=== PATIENT | male | born 1990 | race Caucasian/White ===

== ENCOUNTER 2020-07-23 16:52 | Emergency (ER) | payer OTHER, BC ==
[2020-07-23] MEDS ORDERED: Diphtheria,Pertussis(Acell),Tetanus Vaccine 0.5 ML Syringe IM ONE (17:31)
--- NOTE | 2020-07-23 17:54 | CR ---
Indication: Puncture wound between 1st and 2nd digit Comparison: None available. Technique: AP, Lateral, and Oblique views left hand were obtained Findings: There is no displaced fracture or dislocation. The joint spaces are grossly preserved. There is no evidence of radiopaque foreign body or subcutaneous emphysema. Impression: No evidence of radiopaque foreign body or subcutaneous emphysema. No evidence of displaced fracture. Dictated by Wale Lopez MD @ Jul 23 2020 5:52PM Signed by Dr. Wale Lopez @ Jul 23 2020 5:53PM
--- NOTE | 2020-07-23 18:06 | EDM.PDOC ---
ED HPI GENERAL MEDICAL PROBLEM - General Chief Complaint: Laceration Stated Complaint: STABE TO HAND Time Seen by Provider: 07/23/20 16:57 Source of Information: Reports: Patient History Limitations: Reports: No Limitations - History of Present Illness INITIAL COMMENTS - FREE TEXT/NARRATIVE: HISTORY AND PHYSICAL: History of present illness: Patient is a 30-year-old male who presents to the ED today with concern of puncture wound to his left hand. Patient states he was trying to open a can with a screwdriver when the screwdriver slipped and went into his left hand. Patient states the screwdriver came out immediately and he applied pressure to the area and came to the emergency room. Patient states that he is not up-to-date on his tetanus vaccine and would like to update this today. Patient states he is fully able to move the hand without difficulty. Patient denies any other symptoms or concerns. Patient denies fever, chills, chest pain, shortness of breath, or cough. Denies headache, neck stiff ness, change in vision, syncope, or near syncope. Denies nausea, vomiting, abdominal pain, diarrhea, constipation, or dysuria. Has not noted any blood in urine or stool. Patient has been eating and drinking appropriately. Review of systems: As per history of present illness and below otherwise all systems reviewed and negative. Past medical history: As per history of present illness and as reviewed below otherwise noncontributory. Surgical history: As per history of present illness and as reviewed below otherwise noncontributory. Social history: See social history for further information Family history: As per history of present illness and as reviewed below otherwise noncontributory. Physical exam: General: Patient is alert, oriented, and in no acute distress. Patient sitting comfortably on exam table. Vitals stable and reviewed by me. HEENT: Atraumatic, normocephalic, pupils equal and reactive bilaterally, negative for conjunctival pallor or scleral icterus, mucous membranes moist, TMs normal bilaterally, throat clear, neck supple, nontender, trachea midline. No drooling or trismus noted. No meningeal signs. No hot potato voice noted. Lungs: Clear to auscultation, breath sounds equal bilaterally, chest nontender. Heart: S1S2, regular rate and rhythm without overt murmur Abdomen: Soft, nondistended, nontender. Negative for masses or hepatosplenomegaly. Negative for costovertebral tenderness. Pelvis: Stable nontender. Genitourinary: Deferred. Rectal: Deferred. Skin: Intact, warm, dry. No lesions or rashes noted. Extremities: There is a 3 mm puncture wound with hemostasis which does have underlying mild edema of the webspace between the first and second digit of the dorsum of the left hand. Patient has full range of motion of the hand without deficit. Radial pulses grossly intact of the left upper extremity with capillary refill less than 2 seconds. Otherwise, atraumatic, negative for cords or calf pain. Neurovascular unremarkable. Neuro: Awake, alert, oriented. Cranial nerves II through XII unremarkable. Cerebellum unremarkable. Motor and sensory unremarkable throughout. Exam nonfocal. Notes: Signs and symptoms that were prompt return to the ED thoroughly discussed with patient. Discussed importance for follow-up with a primary care provider. Voices understanding and is agreeable to plan of care. Denies any further questions or concerns at this time. Diagnostics: Hand x-ray Therapeutics: Dressing placed by nursing staff, tetanus Prescription: Keflex Impression: Puncture wound of hand, left Plan: 1. Take medication as prescribed. You can alternate ibuprofen and Tylenol as directed for pain and discomfort. 2. Follow-up with your primary care provider as discussed. Return to the ED as needed and as discussed. Definitive disposition and diagnosis as appropriate pending reevaluation and review of above. left hand Pain Score (Numeric/FACES): 4 - Related Data Allergies Allergy/AdvReac Type Severity Reaction Status Date / Time No Known Allergies Allergy Verified 07/23/20 17:21 Home Meds: Home Meds cephALEXin [Keflex] 500 mg PO Q8H 7 Days #24 cap 07/23/20 [Rx] Past Medical History - Infectious Disease History Infectious Disease History: Reports: None Social & Family History - Family History Family Medical History: No Pertinent Family History - Caffeine Use Caffeine Use: Reports: None - Recreational Drug Use Recreational Drug Use: No ED ROS GENERAL - Review of Systems Review Of Systems: Comprehensive ROS is negative, except as noted in HPI. ED EXAM, SKIN/RASH Exam: See Below (see dictation) Course - Vital Signs Last Recorded V/S: Last Vital Signs Temp 98 F 07/23/20 17:07 Pulse 83 07/23/20 17:07 Resp 16 07/23/20 17:07 BP 162/99 H 07/23/20 17:07 Pulse Ox 96 07/23/20 17:07 - Orders/Labs/Meds Orders: Active Orders 24 hr Category Date Time Status Vaccines to be Administered [RC] PER UNIT ROUTINE Care 07/23/20 17:31 Active Meds: Medications Discontinued Medications Generic Name Dose Route Start Last Admin Trade Name Jyoti PRN Reason Stop Dose Admin Diphtheria/Tetanus/Acell Pertussis 0.5 ml 07/23/20 17:31 Boostrix IM 07/23/20 17:32 .ONCE ONE Departure - Departure Time of Disposition: 18:06 Disposition: Home, Self-Care 01 Clinical Impression: Puncture wound of hand Qualifiers: Encounter type: initial encounter Foreign body presence: without foreign body Laterality: left Qualified Code(s): S61.432A - Puncture wound without foreign body of left hand, initial encounter - Discharge Information Prescriptions: cephALEXin [Keflex] 500 mg PO Q8H 7 Days #24 cap Referrals: PCP,None [Primary Care Provider] - Forms: ED Department Discharge Additional Instructions: The following information is given to patients seen in the emergency department who are being discharged to home. This information is to outline your options for follow-up care. We provide all patients seen in our emergency department with a follow-up referral. The need for follow-up, as well as the timing and circumstances, are variable depending upon the specifics of your emergency department visit. If you don't have a primary care physician on staff, we will provide you with a referral. We always advise you to contact your personal physician following an emergency department visit to inform them of the circumstance of the visit and for follow-up with them and/or the need for any referrals to a consulting specialist. The emergency department will also refer you to a specialist when appropriate. This referral assures that you have the opportunity for follow-up care with a specialist. All of these measure are taken in an effort to provide you with optimal care, which includes your follow-up. Under all circumstances we always encourage you to contact your private physician who remains a resource for coordinating your care. When calling for follow-up care, please make the office aware that this follow-up is from your recent emergency room visit. If for any reason you are refused follow-up, please contact the [facility] Emergency Department at and asked to speak to the emergency department charge nurse. [facility] [address] [place] [address] [facility] [address] [place] [address] 1. Take medication as prescribed. You can alternate ibuprofen and Tylenol as directed for pain and discomfort. 2. Follow-up with your primary care provider as discussed. Return to the ED as needed and as discussed. Sepsis Event Note (ED) - Evaluation Sepsis Screening Result: No Definite Risk - Focused Exam Vital Signs: Vital Signs Temp Pulse Resp BP Pulse Ox 07/23/20 17:07 98 F 83 16 162/99 H 96 - My Orders Last 24 Hours: My Active Orders 07/23/20 17:31 Vaccines to be Administered [RC] PER UNIT ROUTINE - Assessment/Plan Last 24 Hours: My Active Orders 07/23/20 17:31 Vaccines to be Administered [RC] PER UNIT ROUTINE
== END 2020-07-23 18:54 | disposition home or self-care (01) ==
LOC: MW.ED 16:52
DX: S61.432A Puncture wound without foreign body of left hand, initial encounter (principal); Z23 Encounter for immunization; W27.0XXA Contact with workbench tool, initial encounter
CPT/HCPCS: 73130-26-LT; 73130-LT; 90471; 99283; 99283-25

== ENCOUNTER 2022-04-02 12:35 | Emergency (ER) | payer OTHER, BC | END 2022-04-02 14:14 | disposition home or self-care (01) | LOC: MW.ED 12:35 | DX: H10.9 Unspecified conjunctivitis (principal) | CPT/HCPCS: 99283 ==

== ENCOUNTER 2022-11-27 12:14 | Day surgery (SDC) | payer BC ==
[~2022-11-27 12:14] MED LIST: Lactated Ringers 1,000 ML IV SCH
[2022-11-27] MEDS ORDERED: Propofol 200 MG/20 ML SDV ONE (12:34)
[2022-11-27] MEDS ORDERED: Lidocaine 2% 5 ML SDV ONE (12:34)
[2022-11-27] MEDS ORDERED: fentaNYL 100 MCG/2 ML SDV ONE (12:34)
== END 2022-11-27 15:25 | disposition home or self-care (01) ==
LOC: MW.SDS 12:14
PROVIDERS: ATTEND Surgery
DX: K92.1 Melena (principal); K60.2 Anal fissure, unspecified; Z91.048 Other nonmedicinal substance allergy status; Z86.16 Personal history of COVID-19; Z79.899 Other long term (current) drug therapy
CPT/HCPCS: 45378; J2704; J3010; J7120; J3490